=== PATIENT | male | born 1930 | race Caucasian/White ===

== ENCOUNTER → 2017-05-13 | Outpatient (CLI) | payer MEDICARE, OTHER ==
[~2017-05-13] MED LIST: ASPI81TA82 PO; BUPR-197 PO; CELE100C PO; CELE200C PO; HYDR10SO PO; MECL12.574 PO; SIMV80TA PO; TAMS0.4C67 PO; TEMA15 PO
[2017-05-13 12:00] LABS: AUTOMATED NEUTROPHIL # 3.8 TH/MM3 (1.8-7.7); BASOPHIL % 0.5 % (0.0-2.0); EOSINOPHIL # 0.2 TH/MM3 (0-0.4); EOSINOPHIL % 2.5 % (0.0-4.0); HEMATOCRIT 38.2 % (39.0-51.0); HEMO FLAGS DIFF FINAL; LYMPH % 30.1 % (9.0-44.0); LYMPHOCYTE # 1.9 TH/MM3 (1.0-4.8); MEAN CELL VOLUME 91.6 FL (80.0-100.0); MEAN CORPUSCULAR HEMOGLOBIN 30.2 PG (27.0-34.0); MONO % 7.3 % (0.0-8.0); NEUT % 59.6 % (16.0-70.0); PLATELET COUNT 145 TH/MM3 (150-450); RED BLOOD COUNT 4.16 MIL/MM3 (4.50-5.90); RED CELL DISTRIBUTION WIDTH 14.7 % (11.6-17.2); WHITE BLOOD COUNT 6.4 TH/MM3 (4.0-11.0)
[2017-05-13 12:14] LABS: ANION GAP 11 MEQ/L (5-15); AST (GOT) 14 U/L (15-37); BICARBONATE 20.4 MEQ/L (21.0-32.0); BLOOD UREA NITROGEN 16 MG/DL (7-18); CHLORIDE 109 MEQ/L (98-107); GLOMERULAR FILTRATION RATE 65 ML/MIN (>89); GLUCOSE,FASTING 94 MG/DL (74-99); POTASSIUM 4.2 MEQ/L (3.5-5.1); SODIUM (NA) 140 MEQ/L (136-145)
[2017-05-13 12:25] LABS: ALKALINE PHOSPHATASE 68 U/L (45-117); ALT (GPT) 16 U/L (12-78); HDL CHOLESTEROL 53.2 MG/DL (40.0-60.0); LDL CHOLESTEROL 109 MG/DL (0-99); TOTAL BILIRUBIN ADULT 0.6 MG/DL (0.2-1.0)
== END ==
LOC: PLAB 08:46
PROVIDERS: ATTEND Family Medicine
DX: E78.5 Hyperlipidemia, unspecified (principal); E03.9 Hypothyroidism, unspecified
CPT/HCPCS: 36415; 80053; 80061; 84443; 85025

== ENCOUNTER 2017-12-19 11:44 | Observation (INO) | payer MEDICARE, OTHER ==
[~2017-12-19] VITALS: Ht 182.9 cm; Wt 100.0 kg
[2017-12-19 11:46] VITALS: BP 166/76; PULSE 107; RESP 16; TEMP 97.3; O2SAT 97
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
[2017-12-19 12:59] VITALS: O2SAT 96
[2017-12-19] MEDS ORDERED: ASPIRIN 81 MG CHEW TAB CHEW ONE (13:00)
[2017-12-19 13:01] VITALS: BP 146/70; PULSE 66; RESP 17
--- NOTE | 2017-12-19 13:15 | RADRPT ---
EXAM DATE/TIME: 12/19/2017 12:39 [place] COMPARISON: CHEST SINGLE AP, September 29, 2014, 12:33. CHEST SINGLE AP, April 22, 2015, 15:19. INDICATIONS : Possible pacemaker malfunction and shortness of breath. MEDICAL HISTORY : Carcinoma, prostatic. Chronic obstructive pulmonary disease. Hypertension. SURGICAL HISTORY : Pacemaker. CABG. ENCOUNTER: Initial ACUITY: 1 day PAIN SCORE: 0/10 LOCATION: Bilateral chest FINDINGS: PA and lateral views of the chest demonstrate the lungs to be symmetrically aerated without evidence of mass, infiltrate or effusion. Stable right apical scarring, unchanged from 2014. The cardiomedias tinal contours are unremarkable. Osseous structures are intact. Cardiac pacer leads in place. Evid ence of prior median sternotomy. CONCLUSION: No acute cardiopulmonary disease. Papi Garza MD on December 19, 2017 at 13:13 Board Certified Radiologist. This report was verified electronically.
[2017-12-19 13:17] LABS: AUTOMATED NEUTROPHIL # 5.6 TH/MM3 (1.8-7.7); BASOPHIL # 0.1 TH/MM3 (0-0.2); BASOPHIL % 0.6 % (0.0-2.0); EOSINOPHIL # 0.1 TH/MM3 (0-0.4); EOSINOPHIL % 1.7 % (0.0-4.0); HEMATOCRIT 36.7 % (39.0-51.0); HEMOGLOBIN 12.2 GM/DL (13.0-17.0); LYMPH % 23.8 % (9.0-44.0); MEAN CELL VOLUME 91.5 FL (80.0-100.0); MEAN CORPUSCULAR HEMOGLOBIN 30.5 PG (27.0-34.0); MEAN CORPUSCULAR HGB CONC 33.4 % (32.0-36.0); MEAN PLATELET VOLUME 7.7 FL (7.0-11.0); MONOCYTE # 0.6 TH/MM3 (0-0.9); NEUT % 66.9 % (16.0-70.0); PLATELET COUNT 211 TH/MM3 (150-450); RED BLOOD COUNT 4.01 MIL/MM3 (4.50-5.90); RED CELL DISTRIBUTION WIDTH 14.2 % (11.6-17.2); WHITE BLOOD COUNT 8.4 TH/MM3 (4.0-11.0)
[2017-12-19] MEDS ORDERED: DENT1.1G TP (13:26)
[2017-12-19] MEDS ORDERED: ARIC10TA9 PO (13:26)
[2017-12-19] MEDS ORDERED: NAME10TA PO (13:26)
[2017-12-19] MEDS ORDERED: HYDR1LOT TOPICAL (13:26)
[2017-12-19] MEDS ORDERED: TAMS5CAP PO (13:26)
[2017-12-19] MEDS ORDERED: CYAN1000P IM (13:26)
[2017-12-19] MEDS ORDERED: PERC7.5T13 PO (13:26)
[2017-12-19] MEDS ORDERED: ZOCO80TA PO (13:26)
[2017-12-19] MEDS ORDERED: AMBI10TA PO (13:26)
[2017-12-19 13:34] LABS: PROTHROMBIN TIME - PATIENT 10.3 SEC (9.8-11.6)
[2017-12-19 13:39] LABS: BICARBONATE 25.9 MEQ/L (21.0-32.0); BLOOD UREA NITROGEN 18 MG/DL (7-18); CHLORIDE 110 MEQ/L (98-107); CREATININE 1.09 MG/DL (0.60-1.30); GLOMERULAR FILTRATION RATE 64 ML/MIN (>89); GLUCOSE,RANDOM 100 MG/DL (74-106); SODIUM (NA) 141 MEQ/L (136-145)
[2017-12-19 13:44] LABS: TROPONIN I LESS THAN 0.02 NG/ML (0.02-0.05)
[2017-12-19] MEDS ORDERED: NALOXONE HCL 0.4 MG/ML AMP IV PUSH PRN (15:30)
[2017-12-19] MEDS ORDERED: SODIUM CHLORIDE 0.9% FLUSH 10 ML FLUSH IV FLUSH PRN (15:30)
[2017-12-19 20:00] VITALS: PULSE 66
[2017-12-19 20:01] VITALS: BP 144/67; PULSE 67; RESP 20; TEMP 97.7; O2SAT 99
[2017-12-19] MEDS: SODIUM CHLORIDE 0.9% FLUSH 10 ML FLUSH IV FLUSH SCH (20:27)
[2017-12-19 20:39] LABS: TROPONIN I LESS THAN 0.02 NG/ML (0.02-0.05)
--- NOTE | 2017-12-19 21:28 | HHI.HP ---
[facility] Service [facility] Primary Care Physician Solange Wright MD Admission Diagnosis chest pain, rule out ACS Diagnoses: Travel History International Travel<30 Days: No Contact w/Intl Traveler <30 Da: No Traveled to Known Affected Are: No History of Present Illness History the patient, ER physician communication, and review of medical records. Paperwork that came with patient's from the [facility] also reviewed. Patient stated that he went to the [facility] today for his routine checkup. He [facility]. She states that was the reason why he was sent to hospital. Patients during my interview also told me several times that he has been having memory impairment and having difficulty recalling things. He states that he lives on his own and is still driving. He states his PCP had told him that he should never lift on his own alone anymore. His daughter lives in [place] has plans to take came to [place] in March according to the patient. Patient also reports of chest pain. Reports right-sided. No associated symptoms. Denies radiation. However he reports that he has been short of breath for past 6 months. Also reports of dizziness on and off for the past one year. He is not sure when his pacemaker was last checked- in fact, he is not even aware that the pacemaker needed to be checked routinely. [facility], patient was having chest discomfort then the EKG done there is revealing pacemaker failure. No capture/LBBB according to their notes. [facility] notes.. There was no EKGs that is in chart from the [facility] though. Patient denies any syncopal episodes. He does report of history of left flank pain about a week ago which he treated himself as kidney stone with Proventil for 2 and dressed. She stated this has resolved now. He did not seek medical attention then. He never had a prior history of kidney stones. Denies fever. Reports of occasional cough with whitish sputum. Apart from the above, patient denies any other symptoms such as abdominal pains/ nausea/vomiting/diarrhea. He denies any urinary symptoms. Review of Systems Except as stated in HPI: all other systems reviewed are Neg Past Family Social History Past Medical History Hypertension Status post aortic valve replacement Status post PPM March 2015 Hypothyroidism BPH PTSD Anemia Aortic stenosis History of prostate cancer. The [facility] notes. Patient denies. Hyperlipidemia History of diverticulosis Number distant disease GERD Allergies: Coded Allergies: No Known Allergies (Verified Allergy, Unknown, 12/19/17) Physical Exam Vital Signs Vital Signs Date Time Temp Pulse Resp B/P (MAP) Pulse Ox O2 Delivery O2 Flow Rate FiO2 12/19/17 20:01 97.7 67 20 144/67 (92) 99 12/19/17 13:01 66 17 146/70 (95) Room Air 12/19/17 12:59 96 Room Air 12/19/17 11:46 97.3 107 16 166/76 (106) 97 Room Air Physical Exam GENERAL: This is a well-nourished, well-developed patient, in no apparent distress. SKIN: No rashes, ecchymoses or lesions. Cool and dry. HEAD: Atraumatic. Normocephalic. No temporal or scalp tenderness. EYES: . No scleral icterus. No injection or drainage. ENT: Nose without bleeding, purulent drainage or septal hematoma.. Airway patent. NECK: Trachea midline. No JVD or lymphadenopathy. Supple, nontender, no meningeal signs. CARDIOVASCULAR: Regular rate and rhythm without murmurs, gallops, or rubs. RESPIRATORY: Clear to auscultation. Breath sounds equal bilaterally. No wheezes , rales, or rhonchi. GASTROINTESTINAL: Abdomen soft, non-tender, nondistended. No hepato-splenomegaly , or palpable masses. No guarding. MUSCULOSKELETAL: Extremities without clubbing, cyanosis, or edema. No joint tenderness, effusion, or edema noted. No calf tenderness. NEUROLOGICAL: Awake and alert. Motor and sensory grossly within normal limits. Normal speech. Laboratory Laboratory Tests Test 12/19/17 12:30 12/19/17 18:59 White Blood Count 8.4 Red Blood Count 4.01 Hemoglobin 12.2 Hematocrit 36.7 Mean Corpuscular Volume 91.5 Mean Corpuscular Hemoglobin 30.5 Mean Corpuscular Hemoglobin Concent 33.4 Red Cell Distribution Width 14.2 Platelet Count 211 Mean Platelet Volume 7.7 Neutrophils (%) (Auto) 66.9 Lymphocytes (%) (Auto) 23.8 Monocytes (%) (Auto) 7.0 Eosinophils (%) (Auto) 1.7 Basophils (%) (Auto) 0.6 Neutrophils # (Auto) 5.6 Lymphocytes # (Auto) 2.0 Monocytes # (Auto) 0.6 Eosinophils # (Auto) 0.1 Basophils # (Auto) 0.1 CBC Comment DIFF FINAL Differential Comment Prothrombin Time 10.3 Prothromb Time International Ratio 1.0 Activated Partial Thromboplast Time 25.4 Blood Urea Nitrogen 18 Creatinine 1.09 Random Glucose 100 Calcium Level 9.0 Sodium Level 141 Potassium Level 4.1 Chloride Level 110 Carbon Dioxide Level 25.9 Anion Gap 5 Estimat Glomerular Filtration Rate 64 Total Creatine Kinase 56 59 Troponin I LESS THAN 0.02 LESS THAN 0.02 Result Diagram: 12/19/17 1230 12/19/17 1230 Imaging Last 48 hours Impressions Chest X-Ray 12/19/17 0000 Signed Impressions: Service Date/Time: November 12:39 - CONCLUSION: No acute cardiopulmonary disease. Papi Garza MD Capcorini VTE Risk Assessment Caprini VTE Risk Assessment: Mod/High Risk (score >= 2) Caprini Risk Assessment Model Point Value = 1 Point Value = 2 Point Value = 3 Point Value = 5 Age 41-60 Minor surgery BMI > 25 kg/m2 Swollen legs Varicose veins or History of unexplained or recurrent spontaneous Oral contraceptives or hormone replacement Sepsis (< 1 month) Serious lung disease, including pneumonia (< 1 month) Abnormal pulmonary function Acute myocardial infarction Congestive heart failure (< 1 month) History of inflammatory bowel disease Medical patient at bed rest Age 61-74 Arthroscopic surgery Major open surgery (> 45 min) Laparoscopic surgery (> 45 min) Malignancy Confined to bed (> 72 hours) Immobilizing plaster cast Central venous access Age >= 75 History of VTE Family history of VTE Factor V Leiden Prothrombin [id number] Lupus anticoagulant Anticardiolipin antibodies Elevated serum homocysteine Heparin-induced thrombocytopenia Other congenital or acquired thrombophilia Stroke (< 1 month) Elective arthroplasty Hip, pelvis, or leg fracture Acute spinal cord injury (< 1 month) Prophylaxis Regimen Total Risk Factor Score Risk Level Prophylaxis Regimen 0-1 Low Early ambulation 2 Moderate Order ONE of the following: *Sequential Compression Device (SCD) *Heparin 5000 units SQ BID 3-4 Higher Order ONE of the following medications: *Heparin 5000 units SQ TID *Enoxaparin/Lovenox 40 mg SQ daily (WT < 150 kg, CrCl > 30 mL/min) *Enoxaparin/Lovenox 30 mg SQ daily (WT < 150 kg, CrCl > 10-29 mL/min) *Enoxaparin/Lovenox 30 mg SQ BID (WT < 150 kg, CrCl > 30 mL/min) AND/OR *Sequential Compression Device (SCD) 5 or more Highest Order ONE of the following medications: *Heparin 5000 units SQ TID (Preferred with Epidurals) *Enoxaparin/Lovenox 40 mg SQ daily (WT < 150 kg, CrCl > 30 mL/min) *Enoxaparin/Lovenox 30 mg SQ daily (WT < 150 kg, CrCl > 10-29 mL/min) *Enoxaparin/Lovenox 30 mg SQ BID (WT < 150 kg, CrCl > 30 mL/min) AND *Sequential Compression Device (SCD) Assessment and Plan Assessment and Plan Impression: right sided chest pain dizziness - of 1 yr duration dyspnea 6 months duration though progressive near syncope from dizziness on and off Suspect pacemaker malfunction Hypertension Status post aortic valve replacement Status post PPM March 2015 Hypothyroidism BPH PTSD Anemia Aortic stenosis [facility] Patient denies. Hyperlipidemia History of diverticulosis Number distant disease GERD Plan: serial enzymes and ekg Pacemaker interrogation. Patient's case was discussed with his tissue specialist by ER physician. Advised to admit patient for serial enzymes. We'll check echo given the patient is complaining of worsening shortness of breath and past 6 months. Also has history of aortic stenosis. Orthostatics blood pressures. Resume meds. Cardiology was consulted. Case was discussed with Dr. Zhong by ER physician DVT prophylaxis with Lovenox. Discussed Condition With patient, ER Elizabeth Hill MD Dec 19, 2017 21:28
[2017-12-20] VITALS: PULSE 66
[2017-12-20 00:27] VITALS: BP 116/58; PULSE 64; RESP 16; TEMP 97.5; O2SAT 99
[2017-12-20 03:13] LABS: BICARBONATE 24.3 MEQ/L (21.0-32.0); BLOOD UREA NITROGEN 15 MG/DL (7-18); CALCIUM 8.6 MG/DL (8.5-10.1); CHLORIDE 111 MEQ/L (98-107); CREATININE 0.96 MG/DL (0.60-1.30); GLOMERULAR FILTRATION RATE 74 ML/MIN (>89); GLUCOSE,RANDOM 87 MG/DL (74-106); SODIUM (NA) 141 MEQ/L (136-145); TROPONIN I LESS THAN 0.02 NG/ML (0.02-0.05)
[2017-12-20 03:53] LABS: AUTOMATED NEUTROPHIL # 3.9 TH/MM3 (1.8-7.7); BASOPHIL % 0.5 % (0.0-2.0); EOSINOPHIL # 0.2 TH/MM3 (0-0.4); EOSINOPHIL % 3.5 % (0.0-4.0); HEMATOCRIT 34.6 % (39.0-51.0); HEMOGLOBIN 11.4 GM/DL (13.0-17.0); LYMPH % 31.9 % (9.0-44.0); LYMPHOCYTE # 2.2 TH/MM3 (1.0-4.8); MEAN CELL VOLUME 93.6 FL (80.0-100.0); MEAN CORPUSCULAR HEMOGLOBIN 30.8 PG (27.0-34.0); MEAN CORPUSCULAR HGB CONC 32.9 % (32.0-36.0); MEAN PLATELET VOLUME 8.5 FL (7.0-11.0); MONO % 9.2 % (0.0-8.0); MONOCYTE # 0.6 TH/MM3 (0-0.9); NEUT % 54.9 % (16.0-70.0); PLATELET COUNT 201 TH/MM3 (150-450); RED BLOOD COUNT 3.69 MIL/MM3 (4.50-5.90); RED CELL DISTRIBUTION WIDTH 14.4 % (11.6-17.2)
[2017-12-20 04:00] VITALS: PULSE 72
[2017-12-20 04:08] VITALS: BP 111/63; PULSE 63; RESP 16; TEMP 97.5
[2017-12-20 07:40] VITALS: BP 151/77; PULSE 74; RESP 18; TEMP 97.4; O2SAT 97
[2017-12-20] MEDS ORDERED: MEMANTINE HCL 10 MG TAB PO SCH (09:00)
[2017-12-20] MEDS ORDERED: ENOXAPARIN SODIUM 40 MG/0.4 ML SYRINGE SQ SCH (09:00)
[2017-12-20] MEDS: SODIUM CHLORIDE 0.9% FLUSH 10 ML FLUSH IV FLUSH SCH (10:25)
[2017-12-20 12:09] VITALS: BP 139/62; PULSE 61; RESP 18; TEMP 97.6; O2SAT 100
--- NOTE | 2017-12-20 12:51 | ECHRPT ---
Indication: SHORTNESS OF BREATH CONCLUSIONS The left ventricular systolic function is normal with an estimated ejection fraction in the range of 60-65%. Normal left ventricular size. Wall thickness is measured at the upper limits of normal. No regional wall motion abnormalities are present. The left atrial size is mildly dilated. Mild mitral annular calcification. Trace mitral valve regurgitation. Mild mitral valve stenosis. Mitral valve mean gradient is 3 mmHg. The mitral valve area by Pressure Halftime Method is 1.36 cm. Mild to moderate MV stenosis.The aortic valve is not well visualized. There is trace tricuspid valve regurgitation. The estimated pulmonary arterial pressure is 29.2 mmHg. BP: 111 / 63 HR: 79 Rhythm: Sinus MEASUREMENTS (Male / Female) Normal Values Technical Quality:Poor 2D ECHO LV Diastolic Diameter PLAX 4.6 cm 4.2 - 5.9 / 3.9 - 5.3 cm LV Systolic Diameter PLAX 3.3 cm IVS Diastolic Thickness 1.3 cm 0.6 - 1.0 / 0.6 - 0.9 cm LVPW Diastolic Thickness 1.2 cm 0.6 - 1.0 / 0.6 - 0.9 cm LV Relative Wall Thickness 0.5 RV Internal Dim ED PLAX 3.1 cm LA Systolic Diameter LX 4.6 cm 3.0 - 4.0 / 2.7 - 3.8 cm LV Ejection Fraction MOD 4C 60.9 % LV Cardiac Index MOD 4C 2709.7 cm/minm LV Ejection Fraction 4C AL 61.9 % LV Cardiac Index 4C AL 2877.2 cm/minm M-MODE Aortic Root Diameter MM 2.9 cm LA Systolic Diameter MM 4.4 cm LA Ao Ratio MM 1.5 AV Cusp Separation MM 1.5 cm DOPPLER AV Peak Velocity 187.0 cm/s AV Peak Gradient 14.0 mmHg LVOT Peak Velocity 119.0 cm/s LVOT Peak Gradient 5.7 mmHg MV Peak Velocity 109.0 cm/s MV Peak Gradient 4.8 mmHg MV Mean Velocity 76.8 cm/s MV Mean Gradient 3.0 mmHg MV Area PHT 1.9 cm Mitral E Point Velocity 97.3 cm/s Mitral A Point Velocity 99.7 cm/s Mitral E to A Ratio 1.0 LV E' Lateral Velocity 6.4 cm/s Mitral E to LV E' Lateral Ratio 15.1 LV E' Septal Velocity 5.2 cm/s Mitral E to LV E' Septal Ratio 18.8 TR Peak Velocity 219.0 cm/s TR Peak Gradient 19.2 mmHg Right Atrial Pressure 10.0 mmHg Pulmonary Artery Systolic Pressu 29.2 mmHg Right Ventricular Systolic Press 29.2 mmHg FINDINGS LEFT VENTRICLE The left ventricular systolic function is normal with an estimated ejection fraction in the range of 60-65%. Normal left ventricular size. Wall thickness is measured at the upper limits of normal. No regional wall motion abnormalities are present. RIGHT VENTRICLE Normal right ventricular size and systolic function. LEFT ATRIUM The left atrial size is mildly dilated. RIGHT ATRIUM The right atrial size is normal. ATRIAL SEPTUM Normal atrial septal thickness without atrial level shunting by limited color doppler interrogation. AORTA The aortic root and proximal ascending aorta are normal in size on limited imaging. MITRAL VALVE Structurally normal mitral valve. Mild mitral annular calcification. Trace mitral valve regurgitation. Mild mitral valve stenosis. Mitral valve mean gradient is 3 mmHg. The mitral valve area by Pressure Halftime Method is 1.36 cm. Mild to moderate MV stenosis. AORTIC VALVE The aortic valve is not well visualized. TRICUSPID VALVE Structurally normal tricuspid valve. There is trace tricuspid valve regurgitation. The estimated pulmonary arterial pressure is 29.2 mmHg. PULMONARY VALVE No pulmonary valve regurgitation or stenosis. VESSELS The inferior vena cava is normal in size. PERICARDIUM No pericardial effusion. Lucien Lal MD, FACC (Electronically Signed) Final Date:20 December 2017 12:50
--- NOTE | 2017-12-20 13:45 | HHI.DCPOC ---
Discharge Care Plan Diagnosis: (1) Chest pain Goals to Promote Your Health * To prevent worsening of your condition and complications * To maintain your health at the optimal level Directions to Meet Your Goals Take your medications as prescribed Follow your dietary instruction Follow activity as directed Keep your appointments as scheduled Take your immunizations and boosters as scheduled If your symptoms worsen call your PCP, if no PCP go to Urgent Care Center or Emergency Room Smoking is Dangerous to Your Health. Avoid second hand smoke Call the 24-hour hour crisis hotline for domestic abuse at Colt Dove MD Dec 20, 2017 13:45
--- NOTE | 2017-12-20 13:46 | HHI.FF ---
Face to Face Verification Diagnosis: (1) Chest pain (2) Dizziness Physical Therapy Order: Evaluate and Treat Home Health Nursing Order: Nursing assessment with vital signs I have seen patient Jeffery Harrison on 12/20/17. My clinical findings support the need for the requested home health care services because: High risk of falls I certify that my clinical findings support that this patient is homebound because: Unsteady gait/balance Colt Dove MD Dec 20, 2017 13:46
--- NOTE | 2017-12-20 13:49 | HHI.PR ---
Subjective Remarks Follow-up chest pain, dizziness. Patient states that his symptoms have resolved. He has no complaints at this time and wants to go home. Objective Vitals Vital Signs Date Time Temp Pulse Resp B/P (MAP) Pulse Ox O2 Delivery O2 Flow Rate FiO2 12/20/17 12:09 97.6 61 18 139/62 (87) 100 12/20/17 07:40 97.4 74 18 151/77 (101) 97 12/20/17 04:08 97.5 63 16 111/63 (79) 12/20/17 04:00 72 12/20/17 00:27 97.5 64 16 116/58 (77) 99 12/20/17 00:00 66 12/19/17 20:01 97.7 67 20 144/67 (92) 99 12/19/17 20:00 66 Result Diagram: 12/20/17 0156 12/20/17 0156 Imaging Last Impressions Chest X-Ray 12/19/17 0000 Signed Impressions: Service Date/Time: November 12:39 - CONCLUSION: No acute cardiopulmonary disease. Papi Garza MD Objective Remarks General: Elderly male in no acute distress. Heart: Regular rate and rhythm. No murmur. Lungs: Clear to auscultation bilaterally. No wheezes, rales, or rhonchi. Breathing is nonlabored. Abdomen: Soft, nontender, nondistended. Extremities: No lower extremity edema. Psych: Alert. Oriented to city, date. States that the year is 2016. Procedures None Urinary Catheter: No Vascular Central Line Catheter: No A/P Assessment and Plan 1. Chest pain: Resolved. Appreciate cardiology recommendations. Discussed with Dr. Zhong. Cleared for discharge by cardiology. 2. Dizziness: Resolved. Pacemaker interrogated. Continue current medications. 3. Hypothyroidism: Continue Synthroid. 4. DVT prophylaxis: Lovenox. Discharge Planning Discharge home in stable condition. Her healthy diet. Activity as tolerated with assistive device. Follow-up with cardiology, PCP. Colt Dove MD Dec 20, 2017 13:49
--- NOTE | 2017-12-20 14:39 | EKG ---
Date Performed: 12/19/2017 Time Performed: 12:20:49 PTAGE: 87 years EKG: ELECTRONIC ATRIAL PACEMAKER ELECTRONIC VENTRICULAR PACEMAKER ABNORMAL RHYTHM ECG PREVIOUS TRACING : 04/22/2015 15.40 Since the prior tracing, there has been no significant salter DOCTOR: Araseli Hernandez Interpretating Date/Time 12/20/2017 14:36:18
--- NOTE | 2017-12-20 14:40 | EKG ---
Date Performed: 12/19/2017 Time Performed: 20:44:28 PTAGE: 87 years EKG: ELECTRONIC ATRIAL PACEMAKER ELECTRONIC VENTRICULAR PACEMAKER ABNORMAL RHYTHM ECG PREVIOUS TRACING : 12/19/2017 12.20 Since the prior tracing, there has been no significant salter DOCTOR: Araseli Hernandez Interpretating Date/Time 12/20/2017 14:36:36
--- NOTE | 2017-12-20 14:41 | EKG ---
Date Performed: 12/20/2017 Time Performed: 00:47:12 PTAGE: 87 years EKG: ELECTRONIC VENTRICULAR PACEMAKER ABNORMAL RHYTHM ECG PREVIOUS TRACING : 12/19/2017 20.44 Since the prior tracing, there has been no significant salter DOCTOR: Araseli Hernandez Interpretating Date/Time 12/20/2017 14:36:50
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
[2017-12-20] MEDS ORDERED: TAMSULOSIN HCL 0.4 MG CAP PO SCH (21:00)
[2017-12-20] MEDS ORDERED: PRAVASTATIN SOD 80 MG TAB PO SCH (21:00)
[2017-12-20] MEDS ORDERED: DONEPEZIL HCL 5 MG TAB PO SCH (21:00)
[2017-12-20] MEDS ORDERED: NON-FORMULARY DRUG (Simvastatin (Zocor) 40 MG) PO SCH (21:00)
[2017-12-20] MEDS ORDERED: NON-FORMULARY DRUG (Donepezil HCl (Aricept) 10 MG) PO SCH (21:00)
[2017-12-20] MEDS ORDERED: ZOLPIDEM TARTRATE 5 MG TAB PO SCH (21:00)
== END 2017-12-20 15:21 | disposition home or self-care (01) ==
LOC: NEPE 11:44 → NEDA 15:32 → NEPHCDU 16:14
PROVIDERS: ADMIT Family Medicine; ATTEND Family Medicine
DX: R07.89 Other chest pain (principal); R55 Syncope and collapse; R42 Dizziness and giddiness; I47.2 Ventricular tachycardia; I10 Essential (primary) hypertension; E78.00 Pure hypercholesterolemia, unspecified; I25.2 Old myocardial infarction; J44.9 Chronic obstructive pulmonary disease, unspecified; E03.9 Hypothyroidism, unspecified; G47.30 Sleep apnea, unspecified; K21.9 Gastro-esophageal reflux disease without esophagitis; F43.10 Post-traumatic stress disorder, unspecified; N40.0 Benign prostatic hyperplasia without lower urinary tract symptoms; M19.90 Unspecified osteoarthritis, unspecified site; Z95.2 Presence of prosthetic heart valve; Z95.1 Presence of aortocoronary bypass graft; Z85.46 Personal history of malignant neoplasm of prostate; Z95.0 Presence of cardiac pacemaker; Z85.828 Personal history of other malignant neoplasm of skin; Z87.891 Personal history of nicotine dependence
CPT/HCPCS: 71046; 80048; 82550; 84484; 85025; 85610; 85730; 93005; 93306; 96372; 97161; 99285; G0378; G8987; G8988; J1650